=== PATIENT | male | born 1995 | race Caucasian/White ===

== ENCOUNTER 2022-03-05 22:25 | Emergency (ER) | payer MEDICAID ==
[~2022-03-05] VITALS: Ht 175.3 cm; Wt 70.3 kg
[2022-03-05 22:32] VITALS: BP_SYST 156
--- NOTE | 2022-03-05 22:37 | NUR ---
ILYA, MOTHER CALLED 911 WHEN SHE FOUND PT ON THE BUSHES D/T ALCOHOL INTOXICATION. PT PT REPORTPT DRUNK APPROX 750 ML OF VODKA TONIGHT. NOTED N/V.
--- NOTE | 2022-03-05 22:54 | NUR ---
Pt to bed 2 w/ c/o AMS s/p drinking ~325 mL of 30% alcohol content vodka. Pt is nonverbal. Pupils 5-6mm bilaterally. Respirations even and unlabored. Normal skin color for ethnicity. Mother at bedside at this time.
--- NOTE | 2022-03-05 23:29 | NUR ---
Mother back to bedside. MD Us at bedside speaking to patient's mother at this time.
[2022-03-05] MEDS ORDERED: NACL 0.9% 2,000 ML IV ONE (23:30)
[2022-03-06 00:17] LABS: ANION GAP 10 (5-15); CALCIUM 8.2 mg/dL (8.4-11.0); CHLORIDE 105 mmol/L (98-107); CREATININE 0.73 mg/dL (0.55-1.30); GLUCOSE 109 mg/dL (70-99); POTASSIUM 3.5 mmol/L (3.5-5.1); SODIUM SERUM 139 mmol/L (136-145); UREA NITROGEN, BLOOD 12 mg/dL (8-21)
[2022-03-06 00:31] LABS: ALANINE AMINOTRANSFERASE 21 U/L (12-78); ALBUMIN 3.7 g/dL (3.4-4.8); ALCOHOL, BLOOD 375 mg/dL (<10); ASPARTATE AMINOTRANSFERASE 16 U/L (10-37); TOTAL BILIRUBIN 0.3 mg/dL (0.0-1.0)
[2022-03-06 00:32] LABS: GFR AFRICAN AMERICAN 167 mL/min (>90)
[2022-03-06 00:33] LABS: ACETAMINOPHEN < 1 ug/mL (1-30)
--- NOTE | 2022-03-06 00:40 | NUR ---
RETURN FROM CT SCAN VIA [facility] WITH TECH. PORTILLO AT BEDSIDE. CONTINUED MONITORING
--- NOTE | 2022-03-06 00:43 | NUR ---
PT AWAKE, ORIENTED X2. MOM AT BEDSIDE. VERBALIZATIONS INNAPROPIATE, SLURRED THICK WORDS. INCOMPREHSIBLE. CONTINUED MONITORING,
[2022-03-06 01:03] LABS: BASOPHILS % (AUTO) 0.1 % (0.0-2.0); EOSINOPHILS % (AUTO) 0.1 % (0.0-4.0); HEMATOCRIT 41.8 % (36-54); HEMOGLOBIN 14.4 g/dL (14.0-18.0); LYMPHOCYTES # (AUTO) 0.8 K/uL (1.0-5.5); LYMPHOCYTES % (AUTO) 11.9 % (20.5-51.5); MEAN CORPUSCULAR HEMOGLOBIN 31 pg (27-31); MEAN CORPUSCULAR HGB CONC 34 % (32-36); MEAN CORPUSCULAR VOLUME 89 fL (79.0-98.0); MONOCYTES # (AUTO) 0.3 K/uL (0.0-1.0); MONOCYTES % (AUTO) 5.4 % (1.7-9.3); NEUTROPHILS # (AUTO) 5.3 K/uL (1.8-7.7); NEUTROPHILS % (AUTO) 82.5 % (40.0-70.0); PLATELET COUNT (AUTO) 201 K/uL (130-430); RED BLOOD CELL COUNT(AUTO) 4.69 MIL/uL (4.2-6.2); RED CELL DISTRIBUTION WIDTH 12.7 % (9.0-15.0); WHITE BLOOD COUNT (AUTO) 6.4 K/uL (4.8-10.8)
[2022-03-06 01:06] LABS: BILIRUBIN,URINE NEGATIVE (NEGATIVE); CLARITY/URINE CLEAR (CLEAR); COLOR,URINE YELLOW (YELLOW); GLUCOSE,URINE NEGATIVE (NEGATIVE); KETONES,URINE NEGATIVE (NEGATIVE); LEUKOCYTE ESTERASE ,URINE NEGATIVE (NEGATIVE); NITRITE, URINE NEGATIVE (NEGATIVE); PH,URINE 5.5 (5.0-8.0); PROTEIN URINE NEGATIVE (NEGATIVE); UROBILINOGEN,URINE 0.2 (0.2-1.0)
[2022-03-06 01:09] LABS: BLOOD, URINE TRACE (NEGATIVE)
[2022-03-06 01:13] LABS: BACTERIA,URINE None Seen /HPF (None Seen); RBC,URINE 0-3 /HPF (0-3); WBC,URINE NONE SEEN /HPF (0-3)
--- NOTE | 2022-03-06 01:15 | NUR ---
Pt awake at this time speaking to mother. Attempted to educate patient on current status and plan of care, but patient remains GCS 14 r/t alcohol intoxication and unable to understand plan of care.
[2022-03-06 01:20] LABS: BARBITURATE, URINE NEGATIVE (NEG <=200); BENZODIAZEPINE, URINE NEGATIVE (NEG <=150); CANNABINOID, URINE NEGATIVE (NEG <=50); COCAINE, URINE NEGATIVE (NEG <=150); METHAMPHETAMINES SCREEN,URINE NEGATIVE (NEG <=500); OPIATE, URINE NEGATIVE (NEG <=100); PHENCYCLIDINE SCREEN,URINE NEGATIVE (NEG <=25); UR TRICYCLIC ANTIDEPRESSANTS NEGATIVE (NEG <=300); URINE AMPHETAMINE NEGATIVE (NEG <=500); URINE METHADONE NEGATIVE (NEG <=200); URINE OXYCODONE SCREEN NEGATIVE (NEG <=100); URINE PROPOXYPHENE SCREEN NEGATIVE (NEG <=300)
[2022-03-06 02:06] LABS: PROTHROMBIN TIME 10.2 SECS (9.5-12.5)
--- NOTE | 2022-03-06 02:14 | NUR ---
Mother (Dustin) : [phone] Pt's mother left at this time to go home
--- NOTE | 2022-03-06 04:13 | NUR ---
Mother back to bedside at this time. Pt was standing at bedside, but was assisted back into bed at this time.
--- NOTE | 2022-03-06 05:48 | NUR ---
Patient given water per pt request. Pt shows no signs of nausea and vomiting.
--- NOTE | 2022-03-06 06:09 | NUR ---
Patient ambulated independently with strong, steady gait at this time approximately 50 feet. Patient also ate full meal and drank water with no current signs of N/V. Mother remains at bedside and will give patient ride home.
[2022-03-06 06:18] VITALS: BP_SYST 117
--- NOTE | 2022-03-06 06:20 | NUR ---
Patient given written and verbal discharge instructions and verbalizes understanding. ER MD discussed with patient the results and treatment provided. Patient in stable condition. ID arm band removed. IV catheter removed intact and dressing applied, no active bleeding. Patient educated on pain management and to follow up with PMD. Pain Scale 0/10 Opportunity for questions provided and answered.
== END 2022-03-06 06:18 | disposition home or self-care (01) ==
LOC: SED 22:25
DX: F10.10 Alcohol abuse, uncomplicated (principal); T51.91XA Toxic effect of unspecified alcohol, accidental (unintentional), initial encounter; Z79.899 Other long term (current) drug therapy; Y92.89 Other specified places as the place of occurrence of the external cause; Y90.6 Blood alcohol level of 120-199 mg/100 ml
CPT/HCPCS: 99291; 80307; 80053; 85025; 85610; 85730; 87040; 84484; 36415; 93005; 83605; 81000; 70450; 96360; 71045; 72125; 76376; 80048; G0482; J7030; G0480; G0481; 99282; 99283; 99285